=== PATIENT | male | born 1975 | race American Indian/Alaskan Native ===

== ENCOUNTER 2024-06-08 11:26 | Emergency (ER) | payer OTHER, SELFPAY ==
[2024-06-08] VITALS (8 sets, daily range): BP systolic 124–135; BP diastolic 80–96; PULSE 84–113; RESP 16–21; TEMP 36.6–37.1; O2SAT 92–99; BMI 28.6
--- NOTE | 2024-06-08 11:48 | EKG_ITS ---
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
--- NOTE | 2024-06-08 12:02 | ED.NEUROSD ---
HPI - Neuro Symptoms/Deficit General Chief Complaint: Neuro Symptoms/Deficit Stated Complaint: Bilateral leg pain , Numb this morning Time Seen by Provider: 06/08/24 11:54 Source: patient Mode of arrival: Ambulatory History of Present Illness HPI Narrative: Patient is a 48-year-old male not currently on medication he was told to stop his blood pressure meds presenting today with bilateral leg pain. He reports that yesterday he was out in the garage cleaning in the garage does not report any strenuous activity. He slept well last night got up and went to the shower this morning and felt like he had significant leg cramping. His legs were cramps and spasms so bad that he was unable to stand. Does not really report any sort of numbness not having any back pain. No chest pain or shortness of breath. He was able to get himself into the car, but he says it was quite a process. Now he was overall feeling little bit better. He was able to move his legs no loss of urine or stool. On Anticoagulants: No Related Data Allergies Allergy/AdvReac Type Severity Reaction Status Date / Time No Known Drug Allergies Allergy Verified 06/08/24 11:34 Review of Systems Hematologic/Lymphatic On Anticoagulants: No Patient History Social History Smoking Status: Never smoker Smoking Status: Never smoker Exam Initial Vital Signs Initial Vital Signs: Vital Signs Temperature 98.8 F 06/08/24 11:34 Pulse Rate 113 H 06/08/24 11:34 Respiratory Rate 18 06/08/24 11:34 Blood Pressure 135/93 H 06/08/24 11:34 Pulse Oximetry 98 06/08/24 11:34 Oxygen Delivery Method Room Air 06/08/24 11:34 GENERAL: Alert 48-year-old male and in no acute distress. HEENT: Head atraumatic,EOMI, pupils reactive, face symmetric, moist mucous membranes CARDIOVASCULAR: Regular rate and rhythm without murmurs, rubs or gallops. RESPIRATORY: Breath sounds equal bilaterally, no wheezes rales or rhonchi. ABDOMEN: Soft, nontender. Normoactive bowel sounds all 4 quadrants. No guarding or rebound. EXTREMITIES: Normal range of motion, no clubbing or edema. Neurovascularly intact NEUROLOGICAL: Alert and oriented x4.Normal gait and speech. Cranial nerves II through XII grossly intact. Sensation to pinprick equal bilaterally no appreciable numbness or change to touch. Hearing SKIN: Warm, dry, no laceration, no petechiae, no rashes or lesions. Course Orders Ordered: ED Orders 06/08/24 11:48 EKG-12 Lead Stat 06/08/24 12:07 Complete Blood Count AUTO DIFF Stat Comprehensive Metabolic Panel Stat Ethanol (ETOH) Stat Lipase Stat Magnesium Stat Troponin & CK Cardiac Panel Stat 06/08/24 12:34 EKG-12 Lead Routine Discontinued Medications Sodium Chloride (Normal Saline 0.9%) 1,000 mls @ 1,000 mls/hr IV BOLUS ONE Stop: 06/08/24 13:09 Last Infusion: 06/08/24 13:50 Dose: Infused Documented By: Admin: 06/08/24 12:40 Dose: 1,000 mls/hr Documented By: RODRICK Ketorolac Tromethamine (Ketorolac 30 Mg/Ml Vial) 15 mg IV NOW ONE Stop: 06/08/24 12:11 Last Admin: 06/08/24 12:40 Dose: 15 mg Documented By: RODRICK Ondansetron HCl (Ondansetron 4 Mg/2 Ml Inj) 4 mg IV NOW PRN PRN Reason: Nausea And Vomiting Ondansetron HCl (Ondansetron 4 Mg Odt) 4 mg PO NOW PRN PRN Reason: Nausea And Vomiting Vital Signs Vital signs: Vital Signs - 8 hr 06/08/24 11:34 06/08/24 11:54 06/08/24 12:00 Temperature 98.8 F Pulse Rate 113 H 110 H 103 H Respiratory Rate 18 21 16 Blood Pressure 135/93 H Pulse Oximetry 98 Oxygen Delivery Method Room Air 06/08/24 12:27 06/08/24 12:27 06/08/24 12:30 Temperature Pulse Rate 103 H Respiratory Rate Blood Pressure 124/90 135/96 H Pulse Oximetry 97 Oxygen Delivery Method Room Air 06/08/24 12:30 06/08/24 13:00 06/08/24 13:00 Temperature Pulse Rate 98 H 90 Respiratory Rate 19 18 Blood Pressure 133/80 Pulse Oximetry 95 92 Oxygen Delivery Method 06/08/24 13:30 06/08/24 13:30 06/08/24 14:00 Temperature 98 F Pulse Rate 86 84 Respiratory Rate 19 18 Blood Pressure 135/83 135/83 Pulse Oximetry 94 99 Oxygen Delivery Method Room Air MDM - Neuro Symptoms/Deficit Lab Data 06/08/24 12:07 06/08/24 12:07 Labs: Lab Results 06/08/24 Range/Units 12:07 WBC 7.5 (4.5-11.0) X10^3/uL RBC 4.72 (4.5-5.9) X10^6/uL Hgb 15.1 (13.5-17.5) g/dL Hct 44.1 (41-53) % MCV 93.4 (80-100) fL MCH 31.9 (26-34) PG MCHC 34.2 (30-36) % RDW 14.4 (11.6-14.8) % Plt Count 272 (150-400) X10^3/uL Neut % (Auto) 91.4 H (50-75) % Lymph % (Auto) 5.5 L (25-40) % [place] % (Auto) 3.0 (3-14) % Eos % (Auto) 0.0 L (2-4) % Baso % (Auto) 0.1 (0-2) % Neut # (Auto) 6800 (0957-9392) /uL Lymph # (Auto) 400 L (1929-0095) /uL [place] # (Auto) 200 (0-900) /uL Eos # (Auto) 0 (0-450) /uL Baso # (Auto) 0 (0-100) /uL Sodium 134 L (137-145) mmol/L Potassium 4.4 (3.4-5.1) mmol/L Chloride 100 (98-107) mmol/L Carbon Dioxide 17 L (22-32) mmol/L BUN 14 (9-20) mg/dL Creatinine 0.94 (0.66-1.25) mg/dL Estimated GFR > 60 (>60) mL/min BUN/Creatinine Ratio 14.9 (6-22) Glucose 285 H (70-100) mg/dL Calcium 9.3 (8.4-10.2) mg/dL Magnesium 1.7 (1.6-2.3) mg/dL Total Bilirubin 0.6 (0.2-1.3) mg/dL AST 53 (17-59) IU/L ALT 33 (<50) IU/L Alkaline Phosphatase 66 (38-126) U/L Total Creatine Kinase 178 H (55-170) U/L Troponin I < 0.012 (0.01-0.034) ng/mL Total Protein 7.9 (6.3-8.2) g/dL Albumin 4.9 (3.5-5.0) g/dL Globulin 3.0 (1.7-4.1) g/dL Albumin/Globulin Ratio 1.6 (1.0-2.8) Lipase 38 (23-300) U/L Ethyl Alcohol 13 H ( - 10) mg/dL ECG Data Attestation: I personally reviewed and interpreted this ECG as follows: Prior ECG tracings: not available for review Interpretation: Normal sinus rhythm rate 110 MN interval 172 QRS 90 QTC 449 Q-waves noted inferiorly possible ST-elevation MDM Narrative Medical decision making narrative: Patient 48-year-old male presenting to day with leg. Feels like they were spasming cramping quite painful for about 3 hours. He does not have any decreased range of motion he is neurovascularly intact bilaterally he has no back pain no loss of urine or stool. At this time very low suspicion for a cauda equina like syndrome. Blood work has been reviewed No leukocytosis WBC is 7.5 no anemia hemoglobin 15.1 hematocrit 44.1 platelet 272 Sodium 134 potassium 4.4 chloride 100 carbon dioxide 17 BUN 14 creatinine 0.9 glucose 285 CPK 178 Troponin negative Bilirubin liver enzymes within normal limits EKGs reviewed, initially did look like some ST elevation in inferior leads however repeat does not show any significant elevation or depression he was not having any chest pain Patient has no evidence of weakness or numbness he has no evidence of rhabdomyolysis. It really does sound like he was having some muscle spasm in his legs. He was given IV fluid and Toradol. Found to have elevated glucose 285 we discussed diet control and need for further workup for diabetes. Discharge Plan Departure Patient Disposition: Home Clinical Impression: Leg muscle spasm, Elevated glucose Instructions: DI for Muscle Spasm Activity Restrictions/Additional Instructions: *You have been diagnosed with muscle spasm *What to do: At this time increase activity as tolerated recommend some light activity today some stretching. Please stay hydrated make sure drinking enough fluids Your glucose level is 285 it is strongly recommended you a further workup and evaluation for diabetes *Continue to take medications as directed May take Tylenol Motrin as needed for pain *Follow up with your primary care provider in 2-3 days or call [phone] *Return to ER if you should have increasing pain weakness numbness or any new, worsening or concerning symptoms Stand Alone Forms: Patient Portal/API/Survey
[2024-06-08 12:14] LABS: Add Manual Diff / Slide Review NO; Basophils Absolute Auto 0 /uL (0-100); Basophils Percent Auto 0.1 % (0-2); Eosinophils Absolute Auto 0 /uL (0-450); Hematocrit 44.1 % (41-53); Hemoglobin 15.1 g/dL (13.5-17.5); Lymphocytes Absolute Auto 400 /uL (1100-4500); Lymphocytes Percent Auto 5.5 % (25-40); Mean Corpuscular HGB Conc 34.2 % (30-36); Mean Corpuscular Hemoglobin 31.9 PG (26-34); Mean Corpuscular Volume 93.4 fL (80-100); Monocytes Absolute Auto 200 /uL (0-900); Neutrophils Absolute Auto 6800 /uL (1500-7000); Neutrophils Percent Auto 91.4 % (50-75); Platelet Count 272 X10^3/uL (150-400); Red Blood Cell Count 4.72 X10^6/uL (4.5-5.9); Red Cell Distribution Width 14.4 % (11.6-14.8); White Blood Cell Count 7.5 X10^3/uL (4.5-11.0)
--- NOTE | 2024-06-08 12:28 | PC.NURSE ---
states he was in the shower and suddenly got cramping/ spasms in both of his legs. had trouble standing. states bruises over his back. reports he has not drank today. Dr. Pierre was at bedside doing her exam
[2024-06-08 12:31] LABS: Alanine Aminotransferase 33 IU/L (<50); Albumin 4.9 g/dL (3.5-5.0); Albumin Globulin Ratio 1.6 (1.0-2.8); Alkaline Phosphatase 66 U/L (38-126); Aspartate Aminotransferase 53 IU/L (17-59); BUN Creatinine Ratio 14.9 (6-22); Bilirubin Total 0.6 mg/dL (0.2-1.3); Blood Urea Nitrogen 14 mg/dL (9-20); Calcium 9.3 mg/dL (8.4-10.2); Carbon Dioxide 17 mmol/L (22-32); Chloride 100 mmol/L (98-107); Creatine Kinase 178 U/L (55-170); Estimated Glomerular Filt Rate > 60 mL/min (>60); Ethanol (ETOH) 13 mg/dL; Glucose 285 mg/dL (70-100); HEMOLYSIS < 15 (0-50); Lipase 38 U/L (23-300); Magnesium 1.7 mg/dL (1.6-2.3); Potassium 4.4 mmol/L (3.4-5.1); Sodium 134 mmol/L (137-145); Total Protein 7.9 g/dL (6.3-8.2)
--- NOTE | 2024-06-08 12:34 | EKG_ITS ---
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
[2024-06-08] MEDS: KETOROLAC 30 MG/ML VIAL 15 MG IV (12:40)
[2024-06-08] MEDS: SODIUM CHLORIDE 0.9% 1,000 ML 1000 ML IV (12:40)
[2024-06-08 12:42] LABS: Troponin I < 0.012 ng/mL (0.01-0.034)
== END 2024-06-08 14:05 | disposition home or self-care (01) ==
PROVIDERS: Emergency Provider Emergency Medicine
DX: M62.838 Other muscle spasm (principal); R73.9 Hyperglycemia, unspecified; R94.31 Abnormal electrocardiogram [ECG] [EKG]
CPT/HCPCS: 36415; 80053; 80320; 82550; 83690; 83735; 84484; 85025; 93005; 96361; 96374; 99284; J1885